=== PATIENT | male | born 1995 | race Caucasian/White ===

== ENCOUNTER 2016-05-04 22:51 | Observation (INO) | payer OTHER ==
[~2016-05-04] VITALS: Ht 165.1 cm; Wt 125.5 kg
[2016-05-04 23:12] VITALS: Ht 165.1 cm; Wt 125.5 kg
[2016-05-04] MEDS ORDERED: SOD CHLORIDE 0.9% 1,000 ML IV ONE (23:30)
--- NOTE | 2016-05-04 23:44 | RADRPT ---
PROCEDURE: XR Chest. CLINICAL INDICATION: Possible sepsis. TECHNIQUE: Single frontal view of the chest was obtained COMPARISON: None FINDINGS: Cardiomegaly. Hypoinflated lungs, portable technique and patient body habitus accentuate cardiac si lhouette and pulmonary vascular markings. The lungs are otherwise substantially clear. There is no pleural effusion or pneumothorax. IMPRESSION: No acute disease. RPTAT: [facility]U Physician Elida Date Time Electronically viewed and signed by Lilibeth Sanabria Physician on 05/04/2016 23:44 RS/
[2016-05-05 00:02] LABS: ALBUMIN 4.8 g/dl (3.3-4.9)
[2016-05-05 00:03] LABS: POTASSIUM 3.4 mmol/L (3.5-5.1)
[2016-05-05 00:05] LABS: ALBUMIN/GLOBULIN RATIO 1.23; BILIRUBIN,INDIRECT 0.1 mg/dl (0-1.1); BILIRUBIN,TOTAL 0.1 mg/dl (0.2-1.3); CREATININE 0.65 mg/dl (0.61-1.24); TOTAL PROTEIN 8.7 g/dl (6.1-8.1)
[2016-05-05 00:06] LABS: CALCIUM 9.1 mg/dl (8.4-10.2)
[2016-05-05 00:14] LABS: BASOPHILS % 0.3 % (0.0-2.0); EOSINOPHILS # 0.1 10^3/ul (0.0-0.5); EOSINOPHILS % 0.9 % (0.0-7.0); HEMATOCRIT 46.3 % (42.0-52.0); HEMOGLOBIN 15.8 g/dl (14.0-18.0); LYMPHOCYTES # 3.7 10^3/ul (0.8-2.9); MEAN CORPUSCULAR HEMOGLOBIN 28.7 pg (29.0-33.0); MEAN CORPUSCULAR VOLUME 84.3 fl (72.0-104.0); MEAN PLATELET VOLUME 10.9 fl (7.4-10.4); MONOCYTE # 0.7 10^3/ul (0.3-0.9); MONOCYTES % 5.9 % (0.0-13.0); NEUTROPHIL # 7.1 10^3/ul (1.6-7.5); NEUTROPHILS % 60.9 % (30.0-74.0); PLATELET COUNT 217 10^3/UL (140-440); RED BLOOD COUNT 5.49 10^6/ul (4.70-6.10); RED CELL DISTRIBUTION WIDTH 12.7 % (11.5-14.5); UNCORRECTED WBC 11.7 10^3/ul (4.8-10.8); WHITE BLOOD COUNT 11.7 10^3/ul (4.8-10.8)
[2016-05-05 00:17] LABS: TROPONIN-I 0.012 ng/ml (0.00-0.12)
[2016-05-05 00:18] LABS: CONDITION 1
[2016-05-05 00:20] LABS: INR 0.97; PROTIME 12.9 Sec (12.2-14.2)
[2016-05-05 00:21] LABS: PARTIAL THROMBOPLASTIN TIME 28.8 Sec (25.0-35.0)
[2016-05-05 00:34] LABS: ADD UMIC YES; URINE BILIRUBIN (Dip) NEGATIVE (NEGATIVE); URINE BLOOD (Dip) 1+ (NEGATIVE); URINE COLOR LT. YELLOW (YELLOW); URINE GLUCOSE (Dip) NEGATIVE (NEGATIVE); URINE KETONES (Dip) NEGATIVE (NEGATIVE); URINE LEUKOCYTE ESTERASE (Dip) NEGATIVE (NEGATIVE); URINE NITRITE (Dip) NEGATIVE (NEGATIVE); URINE TOTAL PROTEIN (Dip) 1+ (NEGATIVE); URINE UROBILINOGEN (Dip) 0.2 E.U./dL (0.1-1.0)
[2016-05-05] MEDS ORDERED: CEFEPIME 2GM/50 ML (PMX) 50 ML IVPB STA (00:41)
[2016-05-05] MEDS ORDERED: SODIUM CHLORIDE 0.9% 1L BAG IV* STA (00:41)
[2016-05-05 00:53] LABS: BACTERIA,URINE FEW; MUCUS,URINE FEW; SQUAMOUS EPITHELIAL CELL,UR FEW
[2016-05-05] MEDS ORDERED: VANCOMYCIN 1 GM (PMX) 250 ML IVPB ONE (01:00)
[2016-05-05 02:00] VITALS: TEMP 97.8
--- NOTE | 2016-05-05 02:13 | ERA ---
ER Documentation Chief Complaint Date/Time DATE: 05/05/16 TIME: 02:11 Chief Complaint palpitations/dizziness since 2029. hx of DM, denies CP HPI This is a 20-year-old male complains palpitations dizziness since 8:30 PM. Patient has a history of diabetes mellitus. Denies any chest pain. Denies any fevers or chills. Denies any focal neurologic complaints. Denies any polyuria polydipsia or polyphagia. ROS All systems reviewed and are negative except as per history of present illness. Medications Home Meds No Active Prescriptions or Reported Meds Allergies Allergies: Coded Allergies: No Known Allergy (Unverified , 02/20/13) PMhx/Soc Medical and Surgical Hx: pt denies Surgical Hx History of Surgery: No Anesthesia Reaction: No Hx Neurological Disorder: No Hx Respiratory Disorders: No Hx Cardiac Disorders: No Hx Psychiatric Problems: No Hx Miscellaneous Medical Probl: Yes (DM2) Hx Alcohol Use: No Hx Substance Use: No Hx Tobacco Use: No Smoking Status: Never smoker Physical Exam Vitals Vital Signs Date Time Temp Pulse Resp B/P Pulse Ox O2 Delivery O2 Flow Rate FiO2 05/04/16 23:12 98.0 139 20 164/88 98 Physical Exam Const: [] Head: Atraumatic Eyes: Normal Conjunctiva ENT: Normal External Ears, Nose and Mouth. Neck: Full range of motion..~ No meningismus. Resp: Clear to auscultation bilaterally Cardio: Regular rate and rhythm, no murmurs Abd: Soft, non tender, non distended. Normal bowel sounds Skin: No petechiae or rashes Back: No midline or flank tenderness Ext: No cyanosis, or edema Neur: Awake and alert Psych: Normal Mood and Affect Result Diagram: 05/04/16232905/04/162329 Results 24 hrs Laboratory Tests Test 05/04/16 00:00 05/04/16 23:30 Urine Bacteria FEW Urine Bilirubin NEGATIVE Urine Clarity SL HAZY Urine Color LT. YELLOW Urine Glucose NEGATIVE% Urine Hemoglobin 1+ Urine Ketones NEGATIVE Urine Leukocyte Esterase NEGATIVE Urine Microscopic RBC 2-5/HPF Urine Microscopic WBC 0-2/HPF Urine Mucus FEW Urine Nitrite NEGATIVE Urine Specific [place] >=1.030 Urine Squamous Epithelial Cells FEW Urine Total Protein 1+ Urine Urobilinogen 0.2 E.U./dL Urine pH 5.5 Activated Partial Thromboplast Time 28.8Sec Alanine Aminotransferase (ALT/SGPT) 33IU/L Albumin 4.8g/dl Albumin/Globulin Ratio 1.23 Alkaline Phosphatase 110IU/L Anion Gap 20 Aspartate Amino Transf (AST/SGOT) 27IU/L Basophils # 0.010^3/ul Basophils % 0.3% Blood Morphology Comment Blood Urea Nitrogen 13mg/dl Calcium Level 9.1mg/dl Carbon Dioxide Level 26mmol/L Chloride Level 99mmol/L Creatinine 0.65mg/dl Direct Bilirubin 0.00mg/dl Eosinophils # 0.110^3/ul Eosinophils % 0.9% Globulin 3.90g/dl Glucose Level 203mg/dl Hematocrit 46.3% Hemoglobin 15.8g/dl INR International Normalized Ratio 0.97 Indirect Bilirubin 0.1mg/dl Lactic Acid Level 2.8mmol/L Lymphocytes # 3.710^3/ul Lymphocytes % 32.0% Mean Corpuscular Hemoglobin 28.7pg Mean Corpuscular Hemoglobin Concent 34.0g/dl Mean Corpuscular Volume 84.3fl Mean Platelet Volume 10.9fl Monocytes # 0.710^3/ul Monocytes % 5.9% Neutrophils # 7.110^3/ul Neutrophils % 60.9% Nucleated Red Blood Cells # 0.010^3/ul Nucleated Red Blood Cells % 0.0/100WBC Platelet Count 49533^3/UL Potassium Level 3.4mmol/L Prothrombin Time 12.9Sec Prothrombin Time Ratio 1.0 Red Blood Count 5.4910^6/ul Red Cell Distribution Width 12.7% Sodium Level 142mmol/L Total Bilirubin 0.1mg/dl Total Protein 8.7g/dl Troponin I 0.012ng/ml White Blood Count 11.710^3/ul Current Medications Medications (Trade) Dose Ordered Sig/Cassidy Route PRN Reason Start Time Stop Time Status Last Admin Dose Admin Sodium Chloride (NS) 1,000 ml @ 1,000 mls/hr Q1H ONCE IV 05/04/16 23:30 05/05/16 00:29 DC 05/05/16 00:09 Sodium Chloride 3890 ml 3,890 ml BOLUS OVER 2 HOURS STAT IV* 05/05/16 00:41 05/05/16 00:42 DC 05/05/16 01:13 Cefepime HCl 50 ml @ 100 mls/hr ONCE STAT IVPB 05/05/16 00:41 05/05/16 01:10 DC 05/05/16 01:13 Vancomycin HCl (Vancocin) 250 ml @ 125 mls/hr ONCE ONCE IVPB 05/05/16 01:00 05/05/16 02:59 05/05/16 01:45 Procedures/MDM EKG: Rate/Rhythm: Sinus tachycardia at 1 38 bpm QRS, ST, T-waves: [No changes consistent w/ acute ischemia] Impression: Sinus tachycardia; abnormal EKG Chest X-ray 1V Interpreted by me: Soft Tissue: No acute abnormalities Bones: No acute abnormalities Mediastinum/Cardiac Silhouette/Lungs: [No acute abnormalities] Patient's infectious symptoms have not stabilized and the patient is at risk of rapid decompensation. The patient will be admitted for careful hydration, antibiotic therapy, and infectious source control. Severe Sepsis Assessment: Infectious Source: Urine End organ damage indicated by: [Lactate > 2.0 mmol/L Severe Sepsis Managment: Blood Cultures X 2 before broad spectrum antibiotics initiated within 3 hours of recognition. 30 ml/kg NS bolus Completed Initial Lactate: 2.8 Repeat Lactate pending Critical Care: Time: 45 minutes Treatments/Evaluations: Emergent fluid management, while maintaining close respiratory support. Immediate broad spectrum antibiotic therapy. Simultaneous assessment for possible sources in order to direct therapy. Consideration for invasive and chemical support to prevent respiratory or cardiac collapse. Septic Shock Assessment (1 hour post 30 ml/kg fluid bolus): Hypotension (SBP < 90 or 40 mmHg drop, MAP < 65): [No] Lactic acid > 4.0 [No] Perfusion Reassessment for Septic Shock: Temp 98.9, Pulse 112, RR 18, BP 137/77 Heart Exam: [Tachycardic] Lung Exam: [No Crackles] Capillary Refill: [Delayed] Peripheral Pulses: [Radially present] Skin: [Mottled, pale] Accepting Care Team: Current data and ongoing care discussed. Time: 2 AM Primary Provider: Krunal Consulting: [XOXOXO] Outstanding Data: none Departure Diagnosis: Primary Impression: Sepsis Qualified Code: A41.9 - Sepsis, due to unspecified organism Condition: Serious LINA KERNS May 05, 2016 02:13
[2016-05-05 03:18] VITALS: BP 130/65; PULSE 114; RESP 18
[2016-05-05 03:21] LABS: BARBITURATES NEGATIVE (NEGATIVE); BENZODIAZEPINES NEGATIVE (NEGATIVE); CANNABINOIDS POSITIVE (NEGATIVE); COCAINE NEGATIVE (NEGATIVE); OPIATES NEGATIVE (NEGATIVE)
[2016-05-05] MEDS ORDERED: MAGNESIUM HYDROXIDE 30ML CUP PO PRN (04:30)
[2016-05-05] MEDS ORDERED: ONDANSETRON 4 MG INJ IV PRN (04:30)
[2016-05-05] MEDS ORDERED: NACL 0.9% 3 ML SYG IV SCH (04:30)
[2016-05-05] MEDS ORDERED: ACETAMINOPHEN 325 MG TAB PO PRN (04:30)
[2016-05-05] MEDS ORDERED: BISACODYL 10 MG SUPP PR PRN (04:30)
[2016-05-05] MEDS ORDERED: DOCUSATE SODIUM 100 MG CAP PO PRN (04:30)
[2016-05-05] MEDS ORDERED: GLUCOSE GEL 15 GRAM TUBE BUCCAL PRN (04:45)
[2016-05-05] MEDS ORDERED: GLUCAGON 1 MG INJ IM PRN (04:45)
[2016-05-05] MEDS ORDERED: GLUCOSE GEL 15 GRAM TUBE PO PRN ×2 (04:45)
[2016-05-05] MEDS ORDERED: DEXTROSE 50% 50 ML SYRINGE IV PRN ×2 (04:45)
[2016-05-05] MEDS ORDERED: POTASSIUM CHLORIDE (SR) 20 MEQ TAB PO ONE (04:45)
[2016-05-05] MEDS: NS + KCL 20 MEQ 1,000 ML IV SCH ×2 (05:18→12:10)
[2016-05-05 05:35] LABS: BASOPHILS % 0.2 % (0.0-2.0); EOSINOPHILS % 0.2 % (0.0-7.0); HEMATOCRIT 39.8 % (42.0-52.0); HEMOGLOBIN 13.6 g/dl (14.0-18.0); LYMPHOCYTES # 3.1 10^3/ul (0.8-2.9); LYMPHOCYTES % 25.6 % (18.0-55.0); MEAN CORPUSCULAR HEMOGLOBIN 28.9 pg (29.0-33.0); MEAN CORPUSCULAR HGB CONC 34.1 g/dl (32.0-37.0); MEAN CORPUSCULAR VOLUME 84.8 fl (72.0-104.0); MEAN PLATELET VOLUME 10.7 fl (7.4-10.4); MONOCYTE # 0.6 10^3/ul (0.3-0.9); MONOCYTES % 4.7 % (0.0-13.0); NEUTROPHIL # 8.5 10^3/ul (1.6-7.5); NEUTROPHILS % 69.3 % (30.0-74.0); PLATELET COUNT 193 10^3/UL (140-440); RED CELL DISTRIBUTION WIDTH 12.5 % (11.5-14.5); UNCORRECTED WBC 12.2 10^3/ul (4.8-10.8); WHITE BLOOD COUNT 12.2 10^3/ul (4.8-10.8)
[2016-05-05 05:44] LABS: ALBUMIN 3.3 g/dl (3.3-4.9)
[2016-05-05 05:45] LABS: POTASSIUM 4.1 mmol/L (3.5-5.1)
[2016-05-05 05:47] LABS: ALBUMIN/GLOBULIN RATIO 1.17; BILIRUBIN,INDIRECT 0.1 mg/dl (0-1.1); BILIRUBIN,TOTAL 0.1 mg/dl (0.2-1.3); CREATININE 0.45 mg/dl (0.61-1.24); TOTAL PROTEIN 6.1 g/dl (6.1-8.1)
[2016-05-05 05:48] LABS: CALCIUM 8.3 mg/dl (8.4-10.2); CHOL/HDL RATIO 3.7 RATIO; MAGNESIUM 1.8 mg/dl (1.7-2.5); PHOSPHORUS 4.1 mg/dl (2.5-4.9)
[2016-05-05 05:51] LABS: CONDITION 1
[2016-05-05] MEDS ORDERED: PANTOPRAZOLE (EC) 40 MG TAB PO SCH (06:00)
[2016-05-05] MEDS ORDERED: LEVOFLOXACIN 750MG/D5W (PMX) 150 ML IVPB SCH (06:00)
[2016-05-05] MEDS: INSULIN ASPART [NOVOLOG] 3 ML PEN SC SCH ×2 (08:04→12:09)
[2016-05-05] MEDS ORDERED: metFORMIN 850 MG TAB PO SCH (08:05)
[2016-05-05 08:08] VITALS: BP 120/68; RESP 18
[2016-05-05] MEDS ORDERED: ENOXAPARIN 40 MG/0.4 ML SYG SC SCH (09:00)
[2016-05-05 09:22] LABS: THYROID STIMULATING HORMONE 0.83 MIU/L (0.465-4.680)
[2016-05-05 14:24] LABS: OPIATES Negative (NEGATIVE)
[2016-05-05 14:25] LABS: BARBITURATES Negative (NEGATIVE); BENZODIAZEPINES Negative (NEGATIVE); COCAINE Negative (NEGATIVE)
[2016-05-05 14:26] LABS: CANNABINOIDS Positive (NEGATIVE)
--- NOTE | 2016-05-05 14:53 | PDOCDIS ---
Discharge Instructions CONDITION Patient Condition: Good HOME CARE INSTRUCTIONS: Special Diet: carb controlled ACTIVITY: Activity Restrictions: No Restrictions FOLLOW UP/APPOINTMENTS Appointments Follow up with PCP within 1 week OTHER ORDERS: Other Orders: Resume home metformin ELOY PALACIOS May 05, 2016 14:53
--- NOTE | 2016-05-05 17:12 | HP ---
DATE OF ADMISSION: 05/05/2016 ADMISSION HISTORY AND PHYSICAL AND DISCHARGE SUMMARY PRIMARY CARE PHYSICIAN: Unknown. CHIEF COMPLAINT ON ADMISSION: Palpitations, dizziness. HISTORY OF PRESENT ILLNESS: This is a 20-year-old male, slightly obese, with history of di abetes mellitus type 2 who presented to the emergency department with acute onset of palpitations an d dizziness. In the emergency department, he was found to be in sinus tachycardia in the 140s. Wit h multiple IV fluid boluses, his heart rate was not coming down. He was afebrile. White count was slightly elevated. Because of his diabetes mellitus, there was concern underlying infection, accord ing to the ER physician. He was given IV antibiotics. Also, his lactic acid came back slightly joanna vated at 2.8. The patient was admitted to a medical/surgical bed for IV fluids and also while await ing the cultures that were drawn. On admission, I did ask for urine tox screen, which was done andrae y this morning; came back positive with marijuana. When I talked to the patient, he actually admitt ed to the fact that he had edible marijuana yesterday around 8:30 and his symptoms started around 10 , more consistent with late effect of the marijuana he took, in probably larger quantity than he ant icipated due to the fact that edible sometimes has delayed onset. The patient understands his sympt oms are most likely related to the marijuana since he did not have any signs of infection prior to t his. He has been rehydrated. He will be discharged home today. His lactic acid has normalized. ALLERGIES: NO KNOWN ALLERGIES. PAST MEDICAL HISTORY: 1. Diabetes mellitus. 2. Morbid obesity. PAST SURGICAL HISTORY: None. OUTPATIENT MEDICATIONS: Metformin. The patient reports 750 mg p.o. b.i.d. REVIEW OF SYSTEMS: As per HPI. The patient denies any fevers, chills, nausea, vomiting, diarrhea, constipation, shortness of breath, or chest pain. Again, his dizziness and palpitations were defini tely related to the marijuana he did eat. SOCIAL HISTORY: The patient denies any alcohol use and denies any tobacco use and also reports that yesterday was the first time he tried any form of marijuana. PHYSICAL EXAMINATION: VITAL SIGNS: Temperature 98.0, heart rate of 91, sinus rhythm; respiratory rate 18, blood pressure 120/60, patient is saturating 100% on room air. GENERAL: He is alert and oriented x4. He is in no acute distress. He is slightly obese. HEENT: Pupils are equally round and reactive to light. Extraocular muscles are intact. Anicteric sclerae. NECK: No JVD, no thyromegaly noted. HEART: Regular rate and rhythm. No murmur, rubs, or gallops. LUNGS: Clear to auscultation bilaterally. ABDOMEN: Soft, nontender, nondistended. Bowel sounds are present. EXTREMITIES: No edema, clubbing, or cyanosis. NEUROLOGIC: Grossly intact. LABORATORY DATA: White blood cell count is 12.2 with normal differential, hemoglobin of 13.6, hemat ocrit of 39.8, platelet count of 193. Chemistry with a sodium of 142, potassium 3.4, chloride 99, b icarbonate 26, BUN 13, creatinine 0.65, glucose of 203. Lactic acid is down to 1.0. Calcium 9.1. LFTs within normal. INR is 0.97, PT 12.9, PTT 28.8. Toxicology screen came back positive for marij uana this morning when checked here and also it seems like it was already positive last night at mid night. Urinalysis is grossly negative. RADIOLOGICAL DATA: Chest x-ray shows no acute disease. EKG was sinus tachycardia on admission and now sinus rhythm. ASSESSMENT AND PLAN: This is a 20-year-old male with: 1. Episode of palpitation and dizziness definitely related to his intake of edible marijuana. The patient's symptoms are completely resolved now after aggressive hydration overnight. There are no s igns of acute infection per se. His white count is slightly elevated, probably from demargination. Therefore, will discontinue all antibiotics at this time and the patient will be discharged home wi th close followup with his primary care physician as an outpatient. 2. Diabetes mellitus. Resume home medication. His hemoglobin A1c is 6.9. He is to continue his m etformin. 3. Prophylaxis. The patient is ambulatory. DISPOSITION: The patient will be discharged home now. He has been [facility]. DISCHARGE CONDITION: Stable. DISCHARGE DIET: Diabetic diet. DISCHARGE ACTIVITY: Resume home activity. FOLLOWUP: The patient is to follow up with his primary care physician. DISCHARGE MEDICATIONS: Same as admission medications. Metformin 750 mg p.o. b.i.d. with meals. FINAL DIAGNOSES: 1. Side effect or effect from mild overdose of marijuana, which was accidental, as the patient is t he first user of edible marijuana, resolved. 2. Diabetes mellitus. Dictated By: ELOY CHISHOLM/BRYSON Conf#: [id number] DID#: [id number]
[2016-05-06] MEDS ORDERED: ACCUCHECK XX SCH (02:00)
[2016-05-07] MEDS ORDERED: INFLUENZA VIRUS VACCINE 0.5 ML (DISPENSING) IM* ONE (09:00)
== END 2016-05-05 15:30 | disposition home or self-care (01) ==
LOC: E/R 22:51 → MS2 05-05 02:06 → INTOOBSV 05-05 02:06 → MS2 05-05 02:51
PROVIDERS: ADMIT Internal Medicine; ATTEND Internal Medicine
DX: R00.2 Palpitations (principal); R42 Dizziness and giddiness; E11.9 Type 2 diabetes mellitus without complications
CPT/HCPCS: 36415; 71010; 80053; 80061; 80307; 81001; 81003; 82962; 83036; 83605; 83735; 84100; 84439; 84443; 84484; 85025; 85610; 85730; 87040; 87086; 93005; 96361; 96374; 96375; J0692; J1650; J1815; J1956; J3370; J3480; J7030; Z7500; Z7502; Z7610; 99217; G0378

== ENCOUNTER 2016-07-22 19:47 | Emergency (ER) | payer OTHER ==
[~2016-07-22] VITALS: Ht 175.3 cm; Wt 112.0 kg
[2016-07-22 19:50] VITALS: Ht 175.3 cm; Wt 112.0 kg
[2016-07-22] MEDS ORDERED: SOD CHLORIDE 0.9% 1,000 ML IV STA (22:22)
[2016-07-22] MEDS ORDERED: ONDANSETRON 4 MG INJ IV STA (22:22)
[2016-07-22 22:37] LABS: URINE BLOOD (Dip) POC Trace-intact (NEGATIVE)
[2016-07-22 22:48] LABS: ADD SCAN DIFF NO
[2016-07-22 23:00] LABS: BASOPHILS % 0.3 % (0.0-2.0); EOSINOPHILS # 0.1 10^3/ul (0.0-0.5); EOSINOPHILS % 0.9 % (0.0-7.0); HEMATOCRIT 48.1 % (42.0-52.0); HEMOGLOBIN 15.5 g/dl (14.0-18.0); LYMPHOCYTES # 3.7 10^3/ul (0.8-2.9); LYMPHOCYTES % 35.2 % (18.0-55.0); MEAN CORPUSCULAR HEMOGLOBIN 27.7 pg (29.0-33.0); MEAN CORPUSCULAR HGB CONC 32.2 g/dl (32.0-37.0); MEAN CORPUSCULAR VOLUME 85.9 fl (72.0-104.0); MEAN PLATELET VOLUME 12.1 fl (7.4-10.4); MONOCYTE # 0.6 10^3/ul (0.3-0.9); MONOCYTES % 5.6 % (0.0-13.0); NEUTROPHIL # 6.1 10^3/ul (1.6-7.5); NEUTROPHILS % 57.7 % (30.0-74.0); PLATELET COUNT 230 10^3/UL (140-415); RED CELL DISTRIBUTION WIDTH 12.9 % (11.5-14.5); WHITE BLOOD COUNT 10.6 10^3/ul (4.8-10.8)
[2016-07-22 23:10] LABS: ADD UMIC NO; URINE BILIRUBIN (Dip) NEGATIVE (NEGATIVE); URINE BLOOD (Dip) NEGATIVE (NEGATIVE); URINE COLOR LT. YELLOW (YELLOW); URINE GLUCOSE (Dip) NEGATIVE (NEGATIVE); URINE KETONES (Dip) NEGATIVE (NEGATIVE); URINE LEUKOCYTE ESTERASE (Dip) NEGATIVE (NEGATIVE); URINE NITRITE (Dip) NEGATIVE (NEGATIVE); URINE TOTAL PROTEIN (Dip) NEGATIVE (NEGATIVE); URINE UROBILINOGEN (Dip) 0.2 E.U./dL (0.1-1.0)
[2016-07-22 23:33] LABS: ALBUMIN 4.6 g/dl (3.3-4.9)
[2016-07-22 23:34] LABS: POTASSIUM 3.4 mmol/L (3.5-5.1)
[2016-07-22 23:36] LABS: ALBUMIN/GLOBULIN RATIO 1.17; BILIRUBIN,INDIRECT 0.4 mg/dl (0-1.1); BILIRUBIN,TOTAL 0.4 mg/dl (0.2-1.3); CREATININE 0.57 mg/dl (0.61-1.24); TOTAL PROTEIN 8.5 g/dl (6.1-8.1)
[2016-07-22 23:37] LABS: CALCIUM 9.6 mg/dl (8.4-10.2)
[2016-07-23 01:47] LABS: BARBITURATES Negative (NEGATIVE); BENZODIAZEPINES Negative (NEGATIVE)
[2016-07-23 01:55] LABS: CANNABINOIDS Negative (NEGATIVE); COCAINE Negative (NEGATIVE); OPIATES Negative (NEGATIVE)
[2016-07-23] MEDS ORDERED: LANC1COM MC (02:24)
[2016-07-23 02:33] VITALS: BP 143/87; PULSE 80; RESP 18
--- NOTE | 2016-07-23 02:45 | ERD ---
ER Documentation Chief Complaint Date/Time DATE: 07/23/16 TIME: 02:41 Chief Complaint dizzy and "shaky" x 4 days HPI 20-year-old male patient with a past medical history of diabetes presents to the ED complaining of dizziness that started 4 days ago. Reports that the dizziness is not positional. States that the room feels like it spinning. Reports that it is intermittent and feels lightheaded. Patient did not check his blood sugar today. States that he is taking metformin. Denies any chest pain, shortness of breath, abdominal pain, nausea, vomiting, diarrhea, cough, fever, chills. Denies any smoking, alcohol use, drug use. Denies any head injuries. Denies any trauma. Denies any seizures. ROS All systems reviewed and are negative except as per history of present illness. Medications Home Meds Active Scripts Lancets/Blood Glucose Strips (Fora [id number] Lanct-Str) 1 Each Combo..pkg , 1 EACH MC, #1 Prov:KENAN SALEH PA-C 07/23/16 Allergies Allergies: Coded Allergies: No Known Allergy (Unverified , 02/20/13) PMhx/Soc History of Surgery: No Anesthesia Reaction: No Hx Neurological Disorder: No Hx Respiratory Disorders: No Hx Cardiac Disorders: No Hx Psychiatric Problems: No Hx Miscellaneous Medical Probl: Yes (DM) Hx Alcohol Use: No Hx Substance Use: No Hx Tobacco Use: No Smoking Status: Never smoker Physical Exam Vitals Vital Signs Date Time Temp Pulse Resp B/P Pulse Ox O2 Delivery O2 Flow Rate FiO2 07/23/16 02:33 80 18 143/87 98 Room Air 07/22/16 19:50 97.8 86 17 151/79 99 Physical Exam Const: Olv-[id number]-kwmbvdnao, well-nourished. In no acute distress. Head: Atraumatic, normocephalic Eyes: Normal Conjunctiva without injection. No purulent discharge. PERRLA. EOMI ENT: Normal external ear. Ear canal without erythema. Tympanic membrane pearly garduno without effusion or bulging. Nasal canal clear with normal turbinates. Moist oropharynx without tonsillar exudates. Non-erythematous pharynx. Uvula midline. No drooling. No trismus. Neck: No cervical midline tenderness. Full range of motion. No meningismus. No cervical lymphadenopathy. No JVD. Resp: Clear to auscultation bilaterally. No wheezing, rhonchi, rales, or crackles. No accessory muscle use. No retractions. Cardio: Regular rate and rhythm. No murmurs, rubs or gallops. Abd: Soft, non tender, non distended. Normal bowel sounds. No palpable masses. No rebound tenderness. No guarding. Negative [place]. Negative Alberts's Sign. Skin: Normal skin turgor. No petechiae or rashes Back: No midline tenderness. No CVA tenderness. Ext: No cyanosis, or edema. Distal pulses intact bilaterally. Neur: Awake and alert. Normal gait. Normal coordination. Cranial Nerves II- VII intact. Normal finger to nose. Muscle strength 5/5. Sensation intact. Psych: Normal Mood and Affect Results 24 hrs Laboratory Tests Test 07/22/16 22:20 07/22/16 22:30 07/22/16 22:32 07/22/16 22:37 Bedside Glucose 108mg/dL 87mg/dL White Blood Count 10.610^3/ul Red Blood Count 5.6010^6/ul Hemoglobin 15.5g/dl Hematocrit 48.1% Mean Corpuscular Volume 85.9fl Mean Corpuscular Hemoglobin 27.7pg Mean Corpuscular Hemoglobin Concent 32.2g/dl Red Cell Distribution Width 12.9% Platelet Count 67729^3/UL Mean Platelet Volume 12.1fl Neutrophils % 57.7% Lymphocytes % 35.2% Monocytes % 5.6% Eosinophils % 0.9% Basophils % 0.3% Nucleated Red Blood Cells % 0.0/100WBC Neutrophils # 6.110^3/ul Lymphocytes # 3.710^3/ul Monocytes # 0.610^3/ul Eosinophils # 0.110^3/ul Basophils # 0.010^3/ul Nucleated Red Blood Cells # 0.010^3/ul Urine Color LT. YELLOW Urine Clarity CLEAR Urine pH 6.0 Urine Specific [place] 1.020 Urine Ketones NEGATIVE Urine Nitrite NEGATIVE Urine Bilirubin NEGATIVE Urine Urobilinogen 0.2 E.U./dL Urine Leukocyte Esterase NEGATIVE Urine Hemoglobin NEGATIVE Urine Glucose NEGATIVE% Urine Total Protein NEGATIVE Sodium Level 142mmol/L Potassium Level 3.4mmol/L Chloride Level 98mmol/L Carbon Dioxide Level 29mmol/L Anion Gap 18 Blood Urea Nitrogen 9mg/dl Creatinine 0.57mg/dl Glucose Level 95mg/dl Calcium Level 9.6mg/dl Total Bilirubin 0.4mg/dl Direct Bilirubin 0.00mg/dl Indirect Bilirubin 0.4mg/dl Aspartate Amino Transf (AST/SGOT) 27IU/L Alanine Aminotransferase (ALT/SGPT) 29IU/L Alkaline Phosphatase 108IU/L Total Protein 8.5g/dl Albumin 4.6g/dl Globulin 3.90g/dl Albumin/Globulin Ratio 1.17 Lipase 42U/L Urine Opiates Screen Negative Urine Barbiturates Negative Urine Amphetamines Screen Negative Urine Benzodiazepines Screen Negative Urine Cocaine Screen Negative Urine Cannabinoids Negative Bedside Urine pH (LAB) 7.0 Bedside Urine Protein (LAB) Negative Bedside Urine Glucose (UA) Negative Bedside Urine Ketones (LAB) Negative Bedside Urine Blood Trace-intact Bedside Urine Nitrite (LAB) Negative Bedside Urine Leukocyte Esterase (L Negative Current Medications Medications (Trade) Dose Ordered Sig/Cassidy Route PRN Reason Start Time Stop Time Status Last Admin Dose Admin Sodium Chloride (NS) 1,000 ml @ 1,000 mls/hr Q1H STAT IV 07/22/16 22:22 07/22/16 23:21 DC 07/22/16 22:30 Ondansetron HCl (Zofran Inj) 4 mg ONCE STAT IV 07/22/16 22:22 07/22/16 22:24 DC 07/22/16 22:30 Procedures/MDM This is a 20-year-old male patient with no significant past medical history presents to the ED complaining of dizziness. Patient is afebrile and nontoxic- appearing. Patient has normal vital signs. Patient was further worked up with CBC, CMP, lipase, UA, EKG. Patient's pain and symptoms have improved after treatment with 1 L of normal saline, 4 mg IV Zofran. CBC: No leukocytosis. No e/o of systemic infection. No e/o anemia. CMP: No e/o severe acidosis, alkalosis, renal failure, diabetic ketoacidosis, liver disease Lipase within normal limits. Urine: No leukocyte esterase, no nitrites, no hematuria. Urine drug screen negative. EKG reviewed and interpreted by Dr. Zafar Rate/Rhythm: [76 bpm, Normal Sinus Rhythm] No ectopy, no ST elevations, normal axis. QRS, ST, T-waves: [No changes consistent w/ acute ischemia] Impression: [No evidence of ischemia or arrhythmia] Accu-Chek was 87. Low suspicion for acute myocardial infarction, pneumothorax, pneumonia, cardiac tamponade, pulmonary embolism, AAA, aortic dissection, Boerhaave's syndrome, cardiac dysrhythmias,meningitis, intracranial bleed, subarachnoid hemorrhage, subdural hematoma, epidural hematoma, seizure, stroke, TIA or other emergent conditions. Discharge medications: Refill on lancets and test strips. Follow up with primary care physician in 1-2 days for a referral to neurologist. Instructed patient to return to the ED sooner for any worsening symptoms. Patient's questions were answered. Patient understood and agreed with discharge plan. Patient discharged stable. Departure Diagnosis: Primary Impression: Dizziness Condition: Stable Patient Instructions: Dizziness, Unk Cause Referrals: DEVIN SCHREIBER MD, IRA CHUGH,KRISTINE FELICIANO,CHICHI TAN,CADE SMITH,KAYLA FORTUNE,HENRIK HUERTAS,BEL SMALLS,BHAVIK OROZCO MD [facility] YOU HAVE RECEIVED A MEDICAL SCREENING EXAM AND THE RESULTS INDICATE THAT YOU DO NOT HAVE A CONDITION THAT REQUIRES URGENT TREATMENT IN THE EMERGENCY DEPARTMENT. FURTHER EVALUATION AND TREATMENT OF YOUR CONDITION CAN WAIT UNTIL YOU ARE SEEN IN YOUR DOCTORS OFFICE WITHIN THE NEXT 1-2 DAYS. IT IS YOUR RESPONSIBILITY TO MAKE AN APPOINTMENT FOR FOLOW-UP CARE. IF YOU HAVE A PRIMARY DOCTOR --you should call your primary doctor and schedule an appointment IF YOU DO NOT HAVE A PRIMARY DOCTOR YOU CAN CALL OUR PHYSICIAN REFERRAL HOTLINE AT IF YOU CAN NOT AFFORD TO SEE A PHYSICIAN YOU CAN CHOSE FROM THE FOLLOWING [facility] [address] [facility]. [facility] [address] [facility] [address] [facility] [address] [facility]. [facility] [address] [facility]. [facility]. [address] [facility]. [facility] YOU HAVE RECEIVED A MEDICAL SCREENING EXAM AND THE RESULTS INDICATE THAT YOU DO NOT HAVE A CONDITION THAT REQUIRES URGENT TREATMENT IN THE EMERGENCY DEPARTMENT. FURTHER EVALUATION AND TREATMENT OF YOUR CONDITION CAN WAIT UNTIL YOU ARE SEEN IN YOUR DOCTORS OFFICE WITHIN THE NEXT 1-2 DAYS. IT IS YOUR RESPONSIBILITY TO MAKE AN APPOINTMENT FOR FOLOW-UP CARE. IF YOU HAVE A PRIMARY DOCTOR --you should call your primary doctor and schedule and appointment IF YOU DO NOT HAVE A PRIMARY DOCTOR YOU CAN CALL OUR PHYSICIAN REFERRAL HOTLINE AT . IF YOU CAN NOT AFFORD TO SEE A PHYSICIAN YOU CAN CHOSE FROM THE FOLLOWING [facility] INSTITUTIONS: [facility] [address] [place] [address] [facility] [address] [place], [place] [id number] [place] [address] [address] [place] [address] [facility] URGENT CARE/SPECIALTIES Additional Instructions: Call your primary care doctor TOMORROW for an appointment during the next 2-3 days for a referral to a neurologist.See the doctor sooner or return here if your condition worsens before your appointment time. KENAN SALEH PA-C Jul 23, 2016 02:45 KENAN SALEH PA-C Jul 23, 2016 02:45
== END 2016-07-23 02:41 | disposition home or self-care (01) ==
LOC: FTE 19:47
DX: R42 Dizziness and giddiness (principal); E11.9 Type 2 diabetes mellitus without complications
CPT/HCPCS: 36415; 80053; 80307; 81003; 82962; 83690; 85025; 93005; 96374; J2405; J7030; Z7502

== ENCOUNTER 2016-07-31 20:11 | Emergency (ER) | payer OTHER ==
[~2016-07-31] VITALS: Ht 167.6 cm; Wt 126.0 kg
[~2016-07-31 20:11] MED LIST: LANC1COM MC
[2016-07-31 20:13] VITALS: Ht 167.6 cm; Wt 126.0 kg
[2016-07-31] MEDS ORDERED: LORA-777 PO (20:53)
[2016-07-31] MEDS ORDERED: MECL12.574 PO (20:53)
--- NOTE | 2016-07-31 20:57 | ERD ---
ER Documentation Chief Complaint Date/Time DATE: 07/31/16 TIME: 20:55 Chief Complaint Nosebleed dizziness HPI This is a 20-year-old male who is complaining of vertigo. The patient says he was seen here 7-10 days ago for the same symptoms. He states that when he moves his head it makes the room spinning. He has no headache no numbness weakness no focal neurological complaints no speech change or visual changes. He also has been complaining of an occasional bloody nose. None now. Patient was given a prescription for meclizine 12.5 mg he says it helps a little ROS All systems reviewed and are negative except as per history of present illness. Medications Home Meds Active Scripts Loratadine/Pseudoephedrine (CLARITIN-D 24 HOUR TABLET) 1 Each Tab.er.24h, 1 TAB PO DAILY, #30 TAB Prov:CADEN ELLIS. DO 07/31/16 Meclizine Hcl* (Antivert*) 12.5 Mg Tab, 25 MG PO Q6H Y for DIZZINESS, #30 TAB Prov:CADEN ELLIS DO 07/31/16 Lancets/Blood Glucose Strips (Fora [id number] Lanct-Str) 1 Each Combo..pkg , 1 EACH MC, #1 Prov:KENAN SALEH PA-C 07/23/16 Allergies Allergies: Coded Allergies: No Known Allergy (Unverified , 02/20/13) PMhx/Soc History of Surgery: No Anesthesia Reaction: No Hx Neurological Disorder: No Hx Respiratory Disorders: No Hx Cardiac Disorders: No Hx Psychiatric Problems: No Hx Miscellaneous Medical Probl: Yes (DM) Hx Alcohol Use: No Hx Substance Use: No Hx Tobacco Use: No FmHx Family History: No coronary disease Physical Exam Vitals Vital Signs Date Time Temp Pulse Resp B/P Pulse Ox O2 Delivery O2 Flow Rate FiO2 07/31/16 20:13 97.3 95 20 143/81 99 Physical Exam Const: Well-developed, well-nourished Head: Atraumatic, normocephalic Eyes: Normal Conjunctiva, PERRLA, EOMI, normal sclera, no nystagmus ENT: Normal External Ears, Nose and Mouth, moist mucus membranes. Neck: Full range of motion. No meningismus, no lymphadenopathy. Resp: Clear to auscultation bilaterally, no wheezing, rhonchi, rales Cardio: Regular rate and rhythm, no murmurs, S1 S2 present Abd: Soft, non tender x 4, non distended. Normal bowel sounds, no guarding or rebound, no pulsitile abdominal masses or bruits Skin: No petechiae or rashes, no ecchymosis , no maculopapular rash Back: No midline or flank tenderness Ext: No cyanosis, or edema, FROM x 4, normal inspection, neurovascularly intact x 4 Neur: Awake and alert, STR 5/5 x 4, sensation intact x 4, no focal findings, cerebellum intact, vertigo and moves his head Psych: Normal Mood and Affect Procedures/MDM Patient has peripheral vertigo and is being underdosed with meclizine. He needs 25 mg and 12.5 Departure Diagnosis: Primary Impression: Vertigo Condition: Stable Patient Instructions: Vertigo, Unspecified Referrals: LUIS ANGEL DECKER (PCP) CADEN ELLIS DO Jul 31, 2016 20:57
[2016-07-31 22:20] VITALS: BP 136/88; PULSE 80; RESP 16; TEMP 98
== END 2016-07-31 22:22 | disposition home or self-care (01) ==
LOC: FTE 20:11
DX: R42 Dizziness and giddiness (principal); E11.9 Type 2 diabetes mellitus without complications
CPT/HCPCS: 99283

== ENCOUNTER 2016-08-17 22:58 | Emergency (ER) | payer OTHER ==
[~2016-08-17] VITALS: Ht 170.2 cm; Wt 125.0 kg
[~2016-08-17 22:58] MED LIST changes: +LORA-777 PO; +MECL12.574 PO
[2016-08-17 23:01] VITALS: Ht 170.2 cm; Wt 125.0 kg
[2016-08-17] MEDS ORDERED: MECLIZINE 12.5 MG TAB PO ONE (23:30)
--- NOTE | 2016-08-17 23:40 | ERD ---
ER Documentation Chief Complaint Date/Time DATE: 08/17/16 TIME: 23:39 Chief Complaint dizziness, hx- vertigo HPI This is a 21-year-old male coming in with complaint of an acute exacerbation of his chronic vertigo. Denies any head trauma. Denies any focal neurologic complaints. Denies any nausea vomiting fevers or chills. Denies any other current issues. ROS All systems reviewed and are negative except as per history of present illness. Medications Home Meds Active Scripts Loratadine/Pseudoephedrine (CLARITIN-D 24 HOUR TABLET) 1 Each Tab.er.24h, 1 TAB PO DAILY, #30 TAB Prov:LEKKOS,DIVINASTOLOS A. DO 07/31/16 Meclizine Hcl* (Antivert*) 12.5 Mg Tab, 25 MG PO Q6H Y for DIZZINESS, #30 TAB Prov:LEKKOS,DIVINASTOLOS A. DO 07/31/16 Lancets/Blood Glucose Strips (Fora [id number] Lanct-Str) 1 Each Combo..pkg , 1 EACH MC, #1 Prov:KENAN SALEH PA-C 07/23/16 Allergies Allergies: Coded Allergies: No Known Allergy (Unverified , 08/17/16) PMhx/Soc History of Surgery: No Anesthesia Reaction: No Hx Neurological Disorder: No Hx Respiratory Disorders: No Hx Cardiac Disorders: No Hx Psychiatric Problems: No Hx Miscellaneous Medical Probl: Yes (DM, Vertigo) Hx Alcohol Use: No Hx Substance Use: No Hx Tobacco Use: No Physical Exam Vitals Vital Signs Date Time Temp Pulse Resp B/P Pulse Ox O2 Delivery O2 Flow Rate FiO2 08/17/16 23:01 99.0 112 20 150/80 98 Physical Exam Const: [] Head: Atraumatic Eyes: Normal Conjunctiva ENT: Normal External Ears, Nose and Mouth. Neck: Full range of motion..~ No meningismus. Resp: Clear to auscultation bilaterally Cardio: Regular rate and rhythm, no murmurs Abd: Soft, non tender, non distended. Normal bowel sounds Skin: No petechiae or rashes Back: No midline or flank tenderness Ext: No cyanosis, or edema Neur: Awake and alert Psych: Normal Mood and Affect Results 24 hrs Current Medications Medications (Trade) Dose Ordered Sig/Cassidy Route PRN Reason Start Time Stop Time Status Last Admin Dose Admin Meclizine HCl (Antivert) 50 mg ONCE ONCE PO 08/17/16 23:30 08/17/16 23:31 DC 08/17/16 23:30 Procedures/MDM Medical decision-makin-year-old male with acute exacerbation of chronic vertigo. Patient doing much better post meclizine and Ativan by mouth. At this point clinically stable. Patient be discharged home. Told to return for any worsening symptoms Departure Diagnosis: Primary Impression: Dizziness Condition: Stable LINA KERNS August 17, 2016 23:40
[2016-08-17] MEDS ORDERED: BEN50 PO (23:42)
[2016-08-17 23:53] VITALS: BP 147/86; PULSE 89; RESP 18
[2016-08-18] MEDS ORDERED: LORAZEPAM 0.5 MG TAB PO ONE
== END 2016-08-17 23:53 | disposition home or self-care (01) ==
LOC: E/R 22:58
DX: R42 Dizziness and giddiness (principal); E11.9 Type 2 diabetes mellitus without complications
CPT/HCPCS: Z7610 ×2

== ENCOUNTER 2016-09-23 23:53 | Emergency (ER) | payer OTHER ==
[~2016-09-23] VITALS: Ht 175.3 cm; Wt 123.0 kg
[~2016-09-23 23:53] MED LIST changes: +BEN50 PO
[2016-09-23 23:56] VITALS: Ht 175.3 cm; Wt 123.0 kg
--- NOTE | 2016-09-24 01:33 | ERD ---
ER Documentation Chief Complaint Date/Time DATE: 09/24/16 TIME: 01:30 Chief Complaint dizziness x 1 hour HPI This patient is a 29-year-old male presenting to the emergency department with complaints of dizziness which lasted for approximately 20 minutes yesterday. This episode was accompanied by palpitations and a feeling of anxiety while he was at work. He has had the symptoms recently in the past and a self resolved without treatment. The patient states he is feeling much improved currently. He denies any fevers, chills, chest pain, or other symptoms. ROS All systems reviewed and are negative except as per history of present illness. Medications Home Meds Active Scripts Diphenhydramine Hcl* (Benadryl*) 50 Mg Cap, 50 MG PO Q6 Y for vertigo, #30 CAP Prov:LINA KERNS 08/17/16 Loratadine/Pseudoephedrine (CLARITIN-D 24 HOUR TABLET) 1 Each Tab.er.24h, 1 TAB PO DAILY, #30 TAB Prov:CADEN ELLIS DO 07/31/16 Meclizine Hcl* (Antivert*) 12.5 Mg Tab, 25 MG PO Q6H Y for DIZZINESS, #30 TAB Prov:DIVINA ELLISSTBAYLEES A. DO 07/31/16 Lancets/Blood Glucose Strips (Fora [id number] Lanct-Str) 1 Each Combo..pkg , 1 EACH MC, #1 Prov:KENAN SALEH PA-C 07/23/16 Allergies Allergies: Coded Allergies: No Known Allergy (Unverified , 09/23/16) PMhx/Soc Medical and Surgical Hx: pt denies Medical Hx History of Surgery: No Anesthesia Reaction: No Hx Neurological Disorder: No Hx Respiratory Disorders: No Hx Cardiac Disorders: No Hx Psychiatric Problems: No Hx Miscellaneous Medical Probl: Yes (DM, Vertigo) Hx Alcohol Use: No Hx Substance Use: No Hx Tobacco Use: No Smoking Status: Never smoker Physical Exam Vitals Vital Signs Date Time Temp Pulse Resp B/P Pulse Ox O2 Delivery O2 Flow Rate FiO2 09/23/16 23:56 99.0 92 20 140/73 99 Physical Exam Const: Nontoxic, morbidly obese male with a slightly anxious affect. Head: Atraumatic Eyes: Normal Conjunctiva ENT: Normal External Ears, Nose and Mouth. Neck: Full range of motion..~ No meningismus. Resp: Clear to auscultation bilaterally Cardio: Regular rate and rhythm, no murmurs Abd: Soft, non tender, non distended. Normal bowel sounds Skin: No petechiae or rashes Back: No midline or flank tenderness Ext: No cyanosis, or edema Neur: Awake and alert Psych: Normal mood but slightly anxious affect. Results 24 hrs Laboratory Tests Test 09/24/16 00:24 Bedside Glucose 133mg/dL Procedures/MDM 21-year-old male presents to the emergency department with complaints of palpitations and feelings of anxiety which occurred yesterday. Currently the patient feels much improved. Physical examination is benign with the exception of the patient being morbidly obese. The patient states he does have type 2 diabetes and his sugar was checked here and it was 133. EKG was unremarkable. I believe the patient's symptoms are secondary to anxiety. I have low suspicion for acute coronary syndrome, pulmonary embolism, pneumothorax, acute abdomen, septicemia, or other emergent conditions. I advised the patient to use relaxation techniques at home. He may use [id number] Benadryl to help him sleep at night, because he also reports insomnia secondary to anxiety reaction. The patient agrees with the discharge plan of diagnosis. The patient is to have close follow-up with primary care physician. Strict ER return precautions were discussed and the patient demonstrates good understanding. The patient was hemodynamically stable prior to discharge. EKG: Interpreted by ED physician. Rate/Rhythm: Normal sinus rhythm with a rate of 87 bpm. Normal axis QRS, ST, T-waves: No changes consistent w/ acute ischemia Impression: No evidence of ischemia or arrhythmia Departure Diagnosis: Primary Impression: Anxiety reaction Condition: Fair Patient Instructions: Your Body's Response to Anxiety, Anxiety Reaction Additional Instructions: Follow up with your PCP within the next 1-3 days for a repeat evaluation and a possible referral to a specialist, if required. Return the the emergency department immediately if symptoms worsen or change. If you have any questions regarding medications, ask your pharmacist or us before you leave. If any adverse reactions, occur while taking your medications, discontinue the treatment and return to the emergency department immediately. If any new or worsening symptoms, uncontrolled fevers, or other unexplained symptoms occur, return to the emergency department immediately. Take your medications as directed, and complete the entire course of treatment. LINA SIM PA-C Sep 24, 2016 01:33
== END 2016-09-24 00:41 | disposition home or self-care (01) ==
LOC: FTE 23:53
DX: F41.1 Generalized anxiety disorder (principal); E11.9 Type 2 diabetes mellitus without complications
CPT/HCPCS: 82962; 93005; Z7502

== ENCOUNTER 2016-11-04 17:32 | Emergency (ER) | payer OTHER ==
[~2016-11-04] VITALS: Ht 175.3 cm; Wt 122.0 kg
[2016-11-04 17:35] VITALS: Ht 175.3 cm; Wt 122.0 kg
--- NOTE | 2016-11-04 19:19 | ERD ---
ER Documentation Chief Complaint Date/Time DATE: 11/04/16 TIME: 19:17 Chief Complaint 7/10 head pain x 1 week HPI 21-year-old male history of anxiety, type 2 diabetes and obesity presents with intermittent 7 out of 10 frontal headache 1 week. He notices at work, associated with shakiness, and feels faint with palpitations. Patient has been given a prescription for Xanax in the past but states that he is nervous to take it. He did not take anything for his anxiety today. He has not had any syncope. Denies fevers or chills, nausea vomiting, chest pain or shortness of breath. ROS All systems reviewed and are negative except as per history of present illness. Medications Home Meds Active Scripts Ibuprofen* (Motrin*) 600 Mg Tab, 600 MG PO Q6, #30 TAB Prov:VERNON MEI PA-C 11/04/16 Hydroxyzine Hcl* (Atarax*) 25 Mg Tab, 25 MG PO Q6H Y for ITCHING, #30 TAB Prov:VRENON MEI PA-C 11/04/16 Diphenhydramine Hcl* (Benadryl*) 50 Mg Cap, 50 MG PO Q6 Y for vertigo, #30 CAP Prov:LINA KERNS 08/17/16 Loratadine/Pseudoephedrine (CLARITIN-D 24 HOUR TABLET) 1 Each Tab.er.24h, 1 TAB PO DAILY, #30 TAB Prov:DIVINA ELLISSTBAYLEES A. DO 07/31/16 Meclizine Hcl* (Antivert*) 12.5 Mg Tab, 25 MG PO Q6H Y for DIZZINESS, #30 TAB Prov:DIVINA ELLISSTOLOS A. DO 07/31/16 Lancets/Blood Glucose Strips (Fora [id number] Lanct-Str) 1 Each Combo..pkg , 1 EACH MC, #1 Prov:KENAN SALEH PA-C 07/23/16 Allergies Allergies: Coded Allergies: No Known Allergy (Unverified , 11/04/16) PMhx/Soc History of Surgery: No Anesthesia Reaction: No Hx Neurological Disorder: No Hx Respiratory Disorders: No Hx Cardiac Disorders: No Hx Psychiatric Problems: No Hx Miscellaneous Medical Probl: Yes (DM, Vertigo) Hx Alcohol Use: No Hx Substance Use: No Hx Tobacco Use: No Smoking Status: Never smoker Physical Exam Vitals Vital Signs Date Time Temp Pulse Resp B/P Pulse Ox O2 Delivery O2 Flow Rate FiO2 11/04/16 20:56 87 18 143/66 99 Room Air 11/04/16 17:35 97.9 92 18 143/66 99 Physical Exam General: Obese male, no distress, mildly anxious HEENT: Head is normocephalic, atraumatic. No scleral icterus. Neck: Supple. Nontender. Lungs: Clear to auscultation. Normal air movement. Heart: Regular rate and rhythm. S1 and S2 are normal. No murmurs, gallops, or rubs. Abdomen: Soft, nontender, nondistended. Bowel sounds are normoactive. Extremities: No clubbing or cyanosis. Normal pulses. Moving extremities x 4. No weakness. Neurologic: Alert and oriented 3. No focal deficits. Cranial nerves II through XII grossly intact, finger to nose normal. Negative Romberg. Skin: Normal turgor. No rash or lesions. Results 24 hrs Laboratory Tests Test 11/04/16 19:27 11/04/16 20:13 Bedside Glucose 65mg/dL 117mg/dL Current Medications Medications (Trade) Dose Ordered Sig/Cassidy Route PRN Reason Start Time Stop Time Status Last Admin Dose Admin Ibuprofen (Motrin) 600 mg ONCE ONCE PO 11/04/16 19:30 11/04/16 19:31 DC 11/04/16 19:19 Lorazepam (Ativan) 1 mg ONCE ONCE PO 11/04/16 19:30 11/04/16 19:31 DC 11/04/16 19:19 12-lead EKG(interpreted by supervising physician): Rate/Rhythm: Normal Sinus Rhythm, 88 QRS, ST, T-waves: No changes consistent w/ acute ischemia, no intervals, no dysrhythmias, no ectopy Impression: No evidence of ischemia or arrhythmia Procedures/MDM ED course: He was given Ativan, as well as ibuprofen for his headache. Accu-Chek was found to be 65, he was given a sandwich in the emergency department, recheck was 117. MDM: 21-year-old male comes in with with headache, symptoms of anxiety, palpitations and dizziness, symptoms appear to be a combination of anxiety, dizziness can be explained by the hypoglycemia. He is type II diabetic, and takes metformin daily. Due to the hypoglycemia, he will be asked to follow-up with his primary care doctor. Before he just the medication I have asked him to eat a small snack in the afternoon as he gets these symptoms at work. He does not take any long-acting medications or insulin, so when the repeat Accu- Chek refill is sufficient. EKG was normal, and he does report his history of anxiety. He has been hesitant to take the Ativan or Xanax, he was given Ativan here for his anxiety symptoms, he reports he feeling much better. He will be given a short course of Atarax to be taken as needed. Departure Diagnosis: Primary Impression: Headache Additional Impressions: Anxiety reaction Hypoglycemia Condition: Good VERNON MEI PA-C Nov 04, 2016 19:19
[2016-11-04] MEDS ORDERED: LORAZEPAM 1 MG TAB PO ONE (19:30)
[2016-11-04] MEDS ORDERED: IBUPROFEN 600 MG TAB PO ONE (19:30)
[2016-11-04] MEDS ORDERED: HYDR-842 PO (20:43)
[2016-11-04] MEDS ORDERED: IBUP-1542 PO (20:43)
[2016-11-04 20:56] VITALS: BP 143/66; PULSE 87; RESP 18
== END 2016-11-04 20:59 | disposition home or self-care (01) ==
LOC: FTE 17:32
DX: R51 Headache (principal); F41.9 Anxiety disorder, unspecified; E11.649 Type 2 diabetes mellitus with hypoglycemia without coma; E66.9 Obesity, unspecified; R00.2 Palpitations; Z68.39 Body mass index [BMI] 39.0-39.9, adult
CPT/HCPCS: 82962; 93005; Z7502; Z7610

== ENCOUNTER 2016-11-08 03:51 | Emergency (ER) | payer OTHER ==
[~2016-11-08] VITALS: Ht 175.3 cm; Wt 123.5 kg
[~2016-11-08 03:51] MED LIST changes: +HYDR-842 PO; +IBUP-1542 PO
[2016-11-08 04:03] VITALS: Ht 175.3 cm; Wt 123.5 kg
[2016-11-08] MEDS ORDERED: ONDANSETRON (ODT) 4 MG TAB ODT STA (04:23)
[2016-11-08] MEDS ORDERED: ACET/BUTAL/CAFF TAB PO ONE (04:30)
[2016-11-08] MEDS ORDERED: FIORICET PO (04:46)
[2016-11-08] MEDS ORDERED: ONDA4TAB14 PO (04:46)
--- NOTE | 2016-11-08 04:50 | ERD ---
ER Documentation Chief Complaint Date/Time DATE: 11/08/16 TIME: 04:48 Chief Complaint frontal RODRIGUEZ x 5 days, no injury. +nausea -vomit. -vision changes HPI 21-year-old male presents here in emergency department for complaints of frontal headache for 5 days, throbbing pain, 6/10 scale, accompanied with nausea. Patient denies any vomiting. Patient denies any head injury. Patient denies any blurry vision. Patient denies any head injury. Patient denies any loss of consciousness. Patient denies any dizziness. Patient did not take any medications for headache. ROS All systems reviewed and are negative except as per history of present illness. Medications Home Meds Active Scripts Ondansetron (Ondansetron Odt) 4 Mg Tab.rapdis, 4 MG PO Q8 Y for NAUSEA AND/OR VOMITING, #30 TAB Prov:MAY BRUSH NP 11/08/16 Acetamin/Butalbital/Caffeine* (Fioricet*) [id number] Tab, 1 TAB PO Q6H Y for PAIN, #30 TAB Prov:MAY BRUSH NP 11/08/16 Ibuprofen* (Motrin*) 600 Mg Tab, 600 MG PO Q6, #30 TAB Prov:VERNON MEI PA-C 11/04/16 Hydroxyzine Hcl* (Atarax*) 25 Mg Tab, 25 MG PO Q6H Y for ITCHING, #30 TAB Prov:VERNON MEI PA-C 11/04/16 Diphenhydramine Hcl* (Benadryl*) 50 Mg Cap, 50 MG PO Q6 Y for vertigo, #30 CAP Prov:LINA KERNS 08/17/16 Loratadine/Pseudoephedrine (CLARITIN-D 24 HOUR TABLET) 1 Each Tab.er.24h, 1 TAB PO DAILY, #30 TAB Prov:CADEN ELLIS DO 07/31/16 Meclizine Hcl* (Antivert*) 12.5 Mg Tab, 25 MG PO Q6H Y for DIZZINESS, #30 TAB Prov:CADEN ELLIS DO 07/31/16 Lancets/Blood Glucose Strips (Fora [id number] Lanct-Str) 1 Each Combo..pkg , 1 EACH , #1 Prov:KENAN SALEHAlicia RODRIGUEZ 07/23/16 Allergies Allergies: Coded Allergies: No Known Allergy (Unverified , 11/04/16) PMhx/Soc Medical and Surgical Hx: pt denies Surgical Hx History of Surgery: No Anesthesia Reaction: No Hx Neurological Disorder: No Hx Respiratory Disorders: No Hx Cardiac Disorders: No Hx Psychiatric Problems: No Hx Miscellaneous Medical Probl: Yes (DM, Vertigo, anxiety) Hx Alcohol Use: No Hx Substance Use: No Hx Tobacco Use: No FmHx Family History: No coronary disease, No diabetes, No other Physical Exam Vitals Vital Signs Date Time Temp Pulse Resp B/P Pulse Ox O2 Delivery O2 Flow Rate FiO2 11/08/16 04:03 98.1 77 18 138/89 100 Physical Exam GENERAL: The patient is well developed and appropriate for usual state of health, in no apparent distress. CHEST: Clear to auscultation bilaterally. There are no rales, wheezes or rhonchi. HEART: Regular rate and rhythm. No murmurs, clicks, rubs or gallops. No S3 or S4. ABDOMEN: Soft, nontender and nondistended. Good bowel sounds. No rebound or guarding. No gross peritonitis. No gross organomegaly or masses. No Alberts sign or McBurney point tenderness. BACK: No midline or flank tenderness. EXTREMITIES: Equal pulses bilaterally. There is no peripheral clubbing, cyanosis or edema. No focal swelling or erythema. Full range of motion. Grossly neurovascularly intact. NEURO: Alert and oriented. Cranial nerves 2-12 intact. Motor strength in all 4 extremities with 5/5 strength. Sensation grossly intact. Normal speech and gait. Negative Romberg sign. Negative pronator drift. SKIN: There is no apparent rash or petechia. The skin is warm and dry. HEMATOLOGIC AND LYMPHATIC: There is no evidence of excessive bruising or lymphedema. No gross cervical, axillary, or inguinal lymphadenopathy. Results 24 hrs Current Medications Medications (Trade) Dose Ordered Sig/Cassidy Route PRN Reason Start Time Stop Time Status Last Admin Dose Admin Acetaminophen/ Butalbital/ Caffeine (Fioricet) 1 tab ONCE ONCE PO 11/08/16 04:30 11/08/16 04:31 DC 11/08/16 04:41 Ondansetron HCl (Zofran Odt) 4 mg ONCE STAT ODT 11/08/16 04:23 11/08/16 04:25 DC 11/08/16 04:31 Patient was given medication for pain here in emergency department, after treatment, patient verbalized feeling much better. Patient's pain is improved.Patient was given Zofran here in the emergency department. After treatment, patient was able to tolerate po fluids here in the emergency department without any vomiting. There is no signs and symptoms of dehydration. Procedures/MDM Medical Decision Making: Patient symptoms are consistent with migraine headache , possible tension headache. There is low suspicion for neurological emergencies at this time since patients neurologic exam is normal. Patient did not have any altered level consciousness, vomiting, changes in balance or memory and did not have any head injury. CT scan of the brain not indicated at this time. Rx: Fioricet with codeine, Zofran, was advised to follow-up with primary care doctor in 1-2 days for reevaluation of symptoms, see a neurologist specialist if symptoms does not improve. Patient is advised to return to emergency department for any symptoms. Dispostion: Home. Stable Departure Diagnosis: Primary Impression: Headache Headache type: unspecified Headache chronicity pattern: acute headache Intractability: not intractable Qualified Code: R51 - Acute nonintractable headache, unspecified headache type Condition: Stable Patient Instructions: Self-Care for Headaches Referrals: LUIS ANGEL DECKER (PCP) MAY BRUSH NP Nov 08, 2016 04:50
== END 2016-11-08 05:05 | disposition home or self-care (01) ==
LOC: FTE 03:51
DX: R51 Headache (principal); R11.0 Nausea; E11.9 Type 2 diabetes mellitus without complications
CPT/HCPCS: Z7502; Z7610; 99283

== ENCOUNTER 2017-02-15 16:41 | Emergency (ER) | payer OTHER ==
[~2017-02-15] VITALS: Ht 175.3 cm; Wt 127.0 kg
[~2017-02-15 16:41] MED LIST changes: +FIORICET PO; +ONDA4TAB14 PO
[2017-02-15 17:13] VITALS: Ht 175.3 cm; Wt 127.0 kg
[2017-02-15] MEDS ORDERED: IBUP400T22 PO (18:11)
[2017-02-15] MEDS ORDERED: METO10TA92 PO (18:11)
--- NOTE | 2017-02-15 18:18 | ERD ---
ER Documentation Chief Complaint Chief Complaint RODRIGUEZ WITH UPPER PECORALIS PAIN X 4 DAYS, + PHOTOPHOBIA HPI 21 year old male to the emergency department presents to the emergency department complaining of moderate intermittent left ocular pain and headache for the past 4 days. Patient states that he has associated nausea and photophobia with it. He denies taking any medications for this. He denies any neuro deficit ROS All systems reviewed and are negative except as per history of present illness. Medications Home Meds Active Scripts Metoclopramide* (Reglan*) 10 Mg Tablet, 10 MG PO Q6 Y for NAUSEA AND/OR VOMITING , #10 TAB Prov:GRACE STRONG PA-C 02/15/17 Ibuprofen* (Ibuprofen*) 400 Mg Tablet, 400 MG PO Q6H Y for PAIN, #30 TAB Prov:GRACE STRONG PA-C 02/15/17 Ondansetron (Ondansetron Odt) 4 Mg Tab.rapdis, 4 MG PO Q8 Y for NAUSEA AND/OR VOMITING, #30 TAB Prov:MAY BRUSH NP 11/08/16 Acetamin/Butalbital/Caffeine* (Fioricet*) [id number] Tab, 1 TAB PO Q6H Y for PAIN, #30 TAB Prov:MAY BRUSH NP 11/08/16 Ibuprofen* (Motrin*) 600 Mg Tab, 600 MG PO Q6, #30 TAB Prov:VERNON MEI PA-C 11/04/16 Hydroxyzine Hcl* (Atarax*) 25 Mg Tab, 25 MG PO Q6H Y for ITCHING, #30 TAB Prov:VERNON MEI PA-C 11/04/16 Diphenhydramine Hcl* (Benadryl*) 50 Mg Cap, 50 MG PO Q6 Y for vertigo, #30 CAP Prov:LINA KERNS 08/17/16 Loratadine/Pseudoephedrine (CLARITIN-D 24 HOUR TABLET) 1 Each Tab.er.24h, 1 TAB PO DAILY, #30 TAB Prov:CADEN ELLIS DO 07/31/16 Meclizine Hcl* (Antivert*) 12.5 Mg Tab, 25 MG PO Q6H Y for DIZZINESS, #30 TAB Prov:CADEN ELLIS DO 07/31/16 Lancets/Blood Glucose Strips (Fora [id number] Lanct-Str) 1 Each Combo..pkg , 1 EACH , #1 Prov:KENAN SALEH PA-C 07/23/16 Allergies Allergies: Coded Allergies: No Known Allergy (Unverified , 11/04/16) PMhx/Soc Medical and Surgical Hx: pt denies Medical Hx, pt denies Surgical Hx History of Surgery: No Anesthesia Reaction: No Hx Neurological Disorder: No Hx Respiratory Disorders: No Hx Cardiac Disorders: No Hx Psychiatric Problems: No Hx Miscellaneous Medical Probl: Yes (DM, Vertigo, anxiety) Hx Alcohol Use: No Hx Substance Use: No Hx Tobacco Use: No Smoking Status: Never smoker Physical Exam Vitals Vital Signs Date Time Temp Pulse Resp B/P Pulse Ox O2 Delivery O2 Flow Rate FiO2 02/15/17 17:13 98.1 84 18 135/96 99 Physical Exam GENERAL: well-developed/well-nourished, in no apparent distress, non-toxic appearing HENT: NC/AT, bilateral tympanic membrane is normal with good cone of light, nares patent, oropharynx clear without exudates EYES: Conjunctiva normal, PERRLA, EOMI, no nystagmus noted NECK: Supple, no lymphadenopathy PULM: CTA bilaterally, no rales, rhonchi, or wheezing heard CV: Normal S1S2, RRR, good capillary refill GI: Soft, non-distended, normal bowel sounds, non-tender BACK: No midline tenderness, no masses, No CVAT EXT: No clubbing, cyanosis, or edema NEURO: Alert and orientated to person, place, and time. CN II-IIX intact. Gait and coordination were normal. Hand boiler erector strength were equal and within normal limits SKIN: Intact, normal turgor PSYCH: Normal mood and mentation, patient denied SI Results 24 hrs Current Medications Medications (Trade) Dose Ordered Sig/Cassidy Route PRN Reason Start Time Stop Time Status Last Admin Dose Admin Ibuprofen (Motrin) 400 mg ONCE ONCE PO 02/15/17 18:30 02/15/17 18:31 Metoclopramide HCl (Reglan) 10 mg ONCE ONCE PO 02/15/17 18:30 02/15/17 18:31 Diphenhydramine HCl (Benadryl) 50 mg ONCE ONCE PO 02/15/17 18:30 02/15/17 18:31 Procedures/MDM 21-year-old male presents with headache that is most likely a migraine. My differential diagnoses include tension, migraine, and cluster headache, overuse medication headache, subarachnoid hemorrhage, meningitis, stroke. Pain relief Benadryl, Reglan and ibuprofen was given in the ED with some improvement. Neurology exam was normal and I don't recommend a CT scan at this time DISPOSITION: hemodynamically stable and neurovascularly intact. Prescriptions ibuprofen and reglan were given. Discussed to follow up with a primary care physician in the next couple days. Return to the ER if condition worsens or not improving as expected. Patient agreed and understood this plan. Departure Diagnosis: Primary Impression: Headache Condition: Stable Patient Instructions: What Are Migraine and Tension Headaches?, Self-Care for Headaches, Preventing Migraine Headaches: Triggers, Headache, Migraine ( Classical) Additional Instructions: FOLLOW UP WITH YOUR PRIMARY CARE PHYSICIAN TOMORROW.Return to this facility if you are not improving as expected. Take all medicines as directed. Return to this facility if you are not improving as expected. GRACE STRONG PA-C Feb 15, 2017 18:18
[2017-02-15] MEDS ORDERED: DIPHENHYDRAMINE 50 MG CAP PO ONE (18:30)
[2017-02-15] MEDS ORDERED: METOCLOPRAMIDE 10 MG TAB PO ONE (18:30)
[2017-02-15] MEDS ORDERED: IBUPROFEN 200 MG TAB PO ONE (18:30)
== END 2017-02-15 19:00 | disposition home or self-care (01) ==
LOC: FTE 16:41
DX: R51 Headache (principal); E11.9 Type 2 diabetes mellitus without complications
CPT/HCPCS: Z7502; Z7610; 99283

== ENCOUNTER 2017-04-12 20:48 | Emergency (ER) | END 2017-04-12 22:16 | disposition left against medical advice (07) ==

== ENCOUNTER 2017-05-29 10:38 | Emergency (ER) | END 2017-05-29 11:36 | disposition home or self-care (01) ==